=== PATIENT | male | born 1985 ===

== ENCOUNTER → 2018-11-01 21:25 | Outpatient (REF) | payer OTHER, SELFPAY ==
[2018-11-01 22:24] LABS: Add Manual Diff / Slide Review NO; Basophils Percent Auto 0.5 % (0-2); Eosinophils Percent Auto 1.4 % (2-4); Hematocrit 49.3 % (41-53); Hemoglobin 16.7 g/dL (13.5-17.5); Lymphocytes Percent Auto 13.2 % (25-40); Mean Corpuscular HGB Conc 33.9 % (30-36); Mean Corpuscular Hemoglobin 29.3 PG (26-34); Mean Corpuscular Volume 86.4 fL (80-100); Monocytes Percent Auto 3.5 % (3-14); Neutrophils Absolute Auto 9100 /uL (1500-7000); Neutrophils Percent Auto 81.4 % (50-75); Platelet Count 259 X10^3/uL (150-400); Red Cell Distribution Width 12.1 % (11.6-14.8); White Blood Cell Count 11.2 X10^3/uL (4.5-11.0)
[2018-11-03 15:58] LABS: Sex Hormone Binding Globulin 10 nmol/L (10-50)
[2018-11-04 12:39] LABS: PSA Total 1.21 ng/mL (< 4.01)
[2018-11-04 15:37] LABS: Estradiol 23 pg/mL (< 40)
[2018-11-05 22:13] LABS: Testosterone Free 47.9 pg/mL (35.0-155.0); Testosterone Total 223 ng/dL (250-1100)
== END ==
LOC: LAB 21:25
PROVIDERS: Visit Provider Physician Assistant
DX: E29.1 Testicular hypofunction (principal)
CPT/HCPCS: 36415; 82670; 84153; 84154; 84270; 84402; 84403; 85025

== ENCOUNTER → 2019-03-21 21:35 | Outpatient (ROUT) | payer OTHER, SELFPAY ==
[2019-03-21 22:22] LABS: Add Manual Diff / Slide Review NO; Basophils Absolute Auto 100 /uL (0-100); Eosinophils Absolute Auto 200 /uL (0-450); Eosinophils Percent Auto 3.6 % (2-4); Hematocrit 53.9 % (41-53); Lymphocytes Absolute Auto 1600 /uL (1100-4500); Mean Corpuscular HGB Conc 33.3 % (30-36); Mean Corpuscular Hemoglobin 29.6 PG (26-34); Mean Corpuscular Volume 88.8 fL (80-100); Monocytes Absolute Auto 400 /uL (0-900); Monocytes Percent Auto 6.6 % (3-14); Neutrophils Absolute Auto 3300 /uL (1500-7000); Neutrophils Percent Auto 59.8 % (50-75); Platelet Count 242 X10^3/uL (150-400); Red Blood Cell Count 6.07 X10^6/uL (4.5-5.9); Red Cell Distribution Width 12.7 % (11.6-14.8); White Blood Cell Count 5.4 X10^3/uL (4.5-11.0)
[2019-03-21 22:23] LABS: Alanine Aminotransferase 50 IU/L (21-72); Albumin 5.1 g/dL (3.5-5.0); Albumin Globulin Ratio 1.7 (1.0-2.8); Alkaline Phosphatase 74 U/L (38-126); Aspartate Aminotransferase 34 IU/L (17-59); BUN Creatinine Ratio 22.5 (6-22); Bilirubin Total 0.8 mg/dL (0.2-1.3); Blood Urea Nitrogen 18 mg/dL (9-20); Calcium 9.9 mg/dL (8.4-10.2); Carbon Dioxide 26 mmol/L (22-32); Chloride 99 mmol/L (98-107); Estimated Glomerular Filt Rate > 60.0 mL/min (>60); Glucose 96 mg/dL (70-100); HEMOLYSIS < 15 (0-50); Potassium 4.3 mmol/L (3.4-5.1); Sodium 139 mmol/L (137-145); Total Protein 8.1 g/dL (6.3-8.2)
[2019-03-25 15:37] LABS: PSA Total 1.18 ng/mL (< 4.01)
== END ==
PROVIDERS: Visit Provider Naturopath
DX: E29.1 Testicular hypofunction (principal); R41.840 Attention and concentration deficit; E34.9 Endocrine disorder, unspecified; Z13.89 Encounter for screening for other disorder
CPT/HCPCS: 36415; 80053; 82670; 84153; 84154; 84270; 84402; 84403; 85025